=== PATIENT | female | born 1995 | race African-American/Black ===

== ENCOUNTER 2018-06-26 11:27 | Emergency (ER) | payer BC, OTHER ==
[2018-06-26] MEDS ORDERED: diphenhydrAMINE 50 MG/ML VIAL ONE (12:45)
[2018-06-26] MEDS ORDERED: Metoclopramide HCl 10 MG/2 ML VIAL ONE (12:45)
[2018-06-26] MEDS ORDERED: Ketorolac Tromethamine 30 MG/ML VIAL ONE (12:45)
== END 2018-06-26 14:05 | disposition home or self-care (01) ==
LOC: SCSER 11:27
DX: R51 Headache (principal)
CPT/HCPCS: 96365; 96375; J1200; J1885; J2765